=== PATIENT | female | born 1995 | race Caucasian/White ===

== ENCOUNTER 2019-03-18 12:17 | Emergency (ER) | payer MEDICAID, OTHER ==
[2019-03-18] MEDS ORDERED: IBUPROFEN 600 MG TAB PO ONE (12:29)
[2019-03-18] MEDS ORDERED: fentaNYL 100 MCG/2 ML INJ IVP ONE (13:04)
--- NOTE | 2019-03-18 14:47 | EDPHY ---
H & P Stated Complaint: R breast pain x 2 days. On keflex currently Time Seen by Provider: 03/18/19 12:20 HPI/ROS: CHIEF COMPLAINT: Right breast pain HISTORY OF PRESENT ILLNESS: A 23-year-old immunocompetent female who is breast feeding. She reports 4 days of right breast pain. She was seen at [facility] 3 days ago, diagnosed with mastitis, and started on clindamycin. She has taken a total of 7 doses of clindamycin and reports that she is worsening. She has more pain in the right breast in can feel is very tender area below the nipple on the right (around 4 o'clock). She has had fever for which she is taking ibuprofen. She notes fatigue and general malaise. She has been trying to continue to breast feed with right breast but is having difficulty doing so because of pain. REVIEW OF SYSTEMS: A ten system review of systems was performed and is negative with the exception of the items mentioned in the HPI. Past medical history: Negative Social history: She is here with her mother and son. No tobacco or alcohol use. General Appearance: Alert. Vital signs reviewed. Temperature 37.5 degrees, blood pressure 132/85. Eyes: Pupils equal and round, no conjunctival injection, no discharge. Anicteric. ENT, Mouth: Mucous membranes are moist, no oropharyngeal erythema or edema. Neck: No lymphadenopathy, supple. Respiratory: Lungs are clear to auscultation; no wheezes, rales, or rhonchi. Cardiovascular: Regular rate and rhythm; no murmur, rub, or gallop. Breast: No warmth or erythema of either breast. Right breast tender to palpation--I do not appreciate a mass but note that she is particularly tender around 4 o'clock. No nipple discharge. Gastrointestinal: Abdomen is soft and nontender, no masses or organomegaly, bowel sounds normal. Skin: Warm and dry, no rashes on exposed skin, normal color. Neurological: Alert and oriented. Moving all four extremities easily and equally. Psychiatric: Normal affect. - Personal History LMP (Females 10-55): Unknown Current Tetanus Diphtheria and Acellular Pertussis (TDAP): Yes Tetanus Vaccine Date: 2017 - Medical/Surgical History Hx Asthma: No Hx Chronic Respiratory Disease: No Hx Diabetes: No Hx Cardiac Disease: No Hx Renal Disease: No Hx Cirrhosis: No Hx Alcoholism: No Hx HIV/AIDS: No Hx Splenectomy or Spleen Trauma: No Other PMH: denies - Social History Smoking Status: Never smoked Constitutional: Initial Vital Signs Temperature (C) 37.5 C 03/18/19 12:23 Heart Rate 95 03/18/19 12:23 Respiratory Rate 16 03/18/19 12:23 Blood Pressure 132/85 H 03/18/19 12:23 O2 Sat (%) 97 03/18/19 12:23 O2 Delivery Mode Room Air Allergies/Adverse Reactions: Penicillins Allergy (Verified 03/18/19 12:23) Pt reports rash Home Medications: Medication Instructions Recorded Cephalexin [Keflex] 500 mg PO QID #28 cap 03/18/19 Clindamycin 03/18/19 Medical Decision Making ED Course/Re-evaluation: 23-year-old female who is breast feeding and has completed 2 days of clindamycin (not Keflex as initially stated in nursing notes--I examined the prescription bottle to verify this) in treatment of presumed mastitis of the left breast. She reports worsening symptoms with increasing pain and focal pain involving the left breast. She has had fever at home, which she is treating with antipyretics. I am concerned about the possibility of a breast abscess. Other diagnostic possibilities, aside from mastitis and breast abscess, include plugged duct, and malignancy. Breast ultrasound was performed and there is a fluid collection thought to be a possible early abscess or phlegmon. I discussed these findings with Dr. Serafin Lama. I spoke with Dr. Yumiko Silva on the telephone about this patient. She has agreed to see the patient in her office this coming Thursday, 4 days hence.I also spoke with Dr. Hoda Jolly about antiobiotic selection. Patient has a pcn allergy, which she believes is mid. Will switch her from clindamycin to Keflex. Danger signs were reviewed with the patient. - Data Points Medications Given: Discontinued Medications Fentanyl (Sublimaze) 75 mcg IVP EDNOW ONE Stop: 03/18/19 13:05 Last Admin: 03/18/19 13:14 Dose: 75 mcg Ibuprofen (Motrin) 600 mg PO EDNOW ONE Stop: 03/18/19 12:30 Last Admin: 03/18/19 12:32 Dose: 600 mg Departure - Departure Disposition: Home, Routine, Self-Care Clinical Impression: Breast abscess Condition: Good Instructions: Abscess (ED) Additional Instructions: You have an appointment with Dr. Yumiko Silva at 9:00 a.m. On Thursday. 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 I am changing your antibiotic from clindamycin to Keflex. Discontinue the clindamycin that you have been taking and begin the Keflex. If you develop intractable fever, vomiting, warmth or redness of your breast, any new or concerning symptoms please be re-evaluated. Referrals: [facility] [Other] - As per Instructions Yumiko Silva MD [Medical Doctor] - As per Instructions Stand Alone Forms: Work Excuse Prescriptions: Cephalexin [Keflex] 500 mg PO QID #28 cap
[2019-03-18 15:29] VITALS: BP 94/68
== END 2019-03-18 14:53 | disposition home or self-care (01) ==
LOC: CED 12:17
DX: N61.1 Abscess of the breast and nipple (principal)
CPT/HCPCS: 76641-PO; 96374-ER; 99285-ER; J3010